=== PATIENT | female | born 1970 | race Caucasian/White ===

== ENCOUNTER → 2024-11-30 | Outpatient (CLI) | payer OTHER, SELFPAY ==
--- NOTE | 2024-11-30 08:05 | XR_ITS ---
Examination: Diagnostic digital mammography, unilateral, left Computer aided detection 3-D breast Tomosynthesis, unilateral Date and time of exam: November 30, 2024 0857 hours INDICATIONS: Palpable lump left breast note is present for years, mammogram March 16, 2023 7 mm circumscribed nodule inner left breast Technique: Nonmagnified MLO, CC views of the left breast have been obtained, reconstructed from 3-D Tomosynthesis images. R2 computer aided detection program utilized for evaluation of suspicious masses and/or abnormal calcifications. 3-D Tomosynthesis images obtained. Findings: The breast is heterogeneously dense, which may obscure small masses On this study no suspicious masses Impression: BI-RADS category 2: Benign findings Yearly follow-up mammography recommended Please see the left breast sonogram report today indicating 7:00 benign nodule left breast
--- NOTE | 2024-11-30 08:35 | XR_ITS ---
Examination: Breast ultrasound, unilateral, left complete Date and time of exam: November 30, 2024 0841 hours INDICATIONS: Mammogram March 16, 2023 7 mm nodule inner left breast Technique: Real-time amezcua scale ultrasonographic imaging performed left breast including all 4 quadrants as well as nipple retroareolar and axillary region. Findings: 7:00 nodule 8 x 7 mm, stable compared with March 16, 2023 IMPRESSION: BI-RADS Category 2: Benign findings
== END | disposition home or self-care (01) ==
PROVIDERS: PCP Family Medicine; Referring Provider Specialist; Visit Provider Specialist
DX: R92.322 Mammographic fibroglandular density, left breast (principal); N63.24 Unspecified lump in the left breast, lower inner quadrant
CPT/HCPCS: 76641; 77061; 77065; G0279